=== PATIENT | male | born 1965 | race Caucasian/White ===

== ENCOUNTER → 2022-01-25 02:06 | Outpatient (CLI) | payer MEDICAID, SELFPAY ==
--- NOTE | 2022-01-25 11:00 | DI.RAD_ITS ---
Exam(s) XR SHOULDER LT COMPLETE 2+V EXAM: XR SHOULDER LT COMPLETE 2+V CLINICAL HISTORY: PAIN IN RT SHOULDER, M25.511. TECHNIQUE: 2D digital imaging was performed of the left shoulder. Four images were obtained. AP, G rashey, Y-view and axillary views were obtained. COMPARISON: CR LEFT SHOULDER COMPLETE from 03/14/2016 FINDINGS: BONES: No acute fracture is present. No bony destructive lesion is seen. JOINTS: No dislocation present. There are mild degenerative changes at the acromioclavicular joint. SOFT TISSUE: Normal. 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 DATA REPOSITORY: RADIATION DOSE DELIVERED:
--- NOTE | 2022-01-25 11:00 | DI.RAD_ITS ---
Exam(s) XR KNEE LT 3V AP,LAT,GABRIELLA EXAM: XR KNEE LT 3V AP,LAT,GABRIELLA CLINICAL HISTORY: CHRONIC, WORSENING LT KNEE PAIN, M25.562. TECHNIQUE: 2D digital imaging was performed of the left knee. Three images were obtained. AP, late ral and PA tunnel views were obtained. COMPARISON: No exams were available for comparison FINDINGS: BONES: No acute fracture is present. No bony destructive lesion is seen. JOINTS: The knee is normally aligned. No joint effusion is seen. SOFT TISSUE: Normal. IMPRESSION: Normal radiographs of the left knee. DATA REPOSITORY: RADIATION DOSE DELIVERED:
--- NOTE | 2022-01-25 11:00 | DI.RAD_ITS ---
Exam(s) XR SHOULDER RT COMPLETE 2+V EXAM: XR SHOULDER RT COMPLETE 2+V CLINICAL HISTORY: PAIN IN RT SHOULDER, M25.511. TECHNIQUE: 2D digital imaging was performed of the right shoulder. Four images were obtained. AP, Grashey, Y-view and axillary views were obtained. COMPARISON: CR RIGHT SHOULDER COMPLETE from 03/14/2016 FINDINGS: BONES: No acute fracture is present. No bony destructive lesion is seen. JOINTS: No dislocation present. There are mild degenerative changes at both the AC joint and the pieter ohumeral joint. SOFT TISSUE: Normal. IMPRESSION: Mild degenerative changes of the shoulder. DATA REPOSITORY: RADIATION DOSE DELIVERED:
== END ==
PROVIDERS: PCP Family Medicine; Visit Provider Physician Assistant Medical
DX: M19.011 Primary osteoarthritis, right shoulder (principal); M19.012 Primary osteoarthritis, left shoulder; M25.562 Pain in left knee
CPT/HCPCS: 73562; 73030

== ENCOUNTER 2022-03-19 15:15 | Outpatient (CLI) | payer MEDICAID, SELFPAY ==
--- NOTE | 2022-03-19 15:00 | DI.RAD_ITS ---
Exam(s) XR KNEE RT 3V AP,LAT,GABRIELLA EXAM: XR KNEE RT 3V AP,LAT,GABRIELLA CLINICAL HISTORY: HISTORY OF R TKA. TECHNIQUE: 2D digital imaging was performed. Three images were obtained. AP, lateral and PA tunnel views were obtained. COMPARISON: CR RIGHT KNEE LIMITED 1 OR 2 VIEW from 03/07/2016 CR XR KNEE LT 3V AP,LAT,GABRIELLA from 01/25/2022 FINDINGS: BONES: There are stable post operative changes present. No fracture or dislocation. JOINTS: The orthopedic hardware is in good position. No evidence of hardware loosening. SOFT TISSUE: Normal. IMPRESSION: Stable postoperative changes. DATA REPOSITORY: RADIATION DOSE DELIVERED:
== END 2022-03-19 15:16 | disposition home or self-care (01) ==
LOC: DIORS 15:15
PROVIDERS: PCP Family Medicine; Referring Provider Family Medicine; Visit Provider Student in an Organized Health Care Education/Training Program
DX: Z96.651 Presence of right artificial knee joint (principal); M25.561 Pain in right knee; M25.562 Pain in left knee
CPT/HCPCS: 73562

== ENCOUNTER 2022-04-20 00:12 | Outpatient (CLI) | payer MEDICAID, SELFPAY ==
--- NOTE | 2022-04-20 06:45 | DI.MRI_ITS ---
Exam(s) MR UPPER JOINT RT WO EXAM: MR UPPER JOINT RT WO CLINICAL HISTORY: R SHOULDER PAIN,M67.911,BILAT ROTATOR CUFF DYSFUNCTION. TECHNIQUE: Multiplanar multisequence MRI was performed. COMPARISON: MR MRI R UPPER JOINT WO CONT from 02/20/2016 CR XR SHOULDER RT COMPLETE 2+V from 01/25/2022 FINDINGS: BONES: There is no fracture or contusion pattern. There is mild marrow edema seen at the rotator cuff insertion site. JOINTS: The acromioclavicular joint is normal. The glenohumeral joint is normal. TENDONS: Supraspinatus: Mild tendinosis but no evidence of a tear. Infraspinatus: Mild tendinosis, but no evidence of a tear. Subscapularis: There is tendinosis of the subscapularis tendon. No definite evidence of a tear. Teres Minor: Unremarkable. Biceps and [place]: Unremarkable. MUSCLES: Unremarkable. GLENOID LABRUM: Unremarkable on this noncontrast examination. SOFT TISSUES: Unremarkable. LIGAMENTS: Unremarkable. OTHER: There is a small amount of fluid seen in the subacromial bursa. IMPRESSION: 1. Rotator cuff tendinosis without evidence of a tear. 2. Unremarkable glenoid labrum on this noncontrast examination. 3. Small amount of fluid in the subacromial bursa. DATA REPOSITORY:
--- NOTE | 2022-04-20 06:45 | DI.MRI_ITS ---
Exam(s) MR UPPER JOINT LT WO EXAM: MR UPPER JOINT LT WO CLINICAL HISTORY: L SHOULDER PAIN,M67.912,BILAT ROTATOR CUFF DYSFUNCTION. TECHNIQUE: Multiplanar multisequence MRI was performed. COMPARISON: MR MRI - L UPPER JOINT WO CONT from 02/20/2016 CR XR SHOULDER LT COMPLETE 2+V from 01/25/2022 FINDINGS: BONES: There is no fracture or contusion pattern. JOINTS: There are degenerative changes seen at the acromioclavicular joint. The glenohumeral joint i s normal. TENDONS: Supraspinatus: There is a partial articular surface tear of the supraspinatus tendon at its insertion site. Infraspinatus: Unremarkable. Subscapularis: There is tendinosis of the subscapularis tendon without a tear. Teres Minor: Unremarkable. Biceps and [place]: Unremarkable. MUSCLES: Unremarkable. GLENOID LABRUM: Unremarkable on this noncontrast examination. SOFT TISSUES: Unremarkable. LIGAMENTS: Unremarkable. OTHER: Subacromial and subdeltoid bursae are unremarkable. IMPRESSION: 1. Partial articular surface tear of the supraspinatus tendon at its insertion site. 2. Degenerative changes at the acromioclavicular joint. DATA REPOSITORY:
== END 2022-04-20 00:32 ==
LOC: DI 00:12
PROVIDERS: PCP Family Medicine; Visit Provider Student in an Organized Health Care Education/Training Program
DX: M67.911 Unspecified disorder of synovium and tendon, right shoulder (principal); M67.912 Unspecified disorder of synovium and tendon, left shoulder; M19.012 Primary osteoarthritis, left shoulder; M75.102 Unspecified rotator cuff tear or rupture of left shoulder, not specified as traumatic
CPT/HCPCS: 73221